=== PATIENT | male | born 1990 | race African-American/Black ===

== ENCOUNTER 2020-10-24 10:31 | Emergency (ER) | payer OTHER ==
[2020-10-24 10:39] VITALS: BMI 31.1
[2020-10-24] MEDS ORDERED: DIPHTH,PERTUSS(ACELL),TET 0.5 ML DISP.SYRIN IM ONE ×2 (11:13→11:18)
[2020-10-24 11:52] VITALS: BP 176/68; PULSE 82; TEMP 98.5
== END 2020-10-24 11:51 | disposition home or self-care (01) ==
LOC: JERFT 10:31
PROC: 3E0234Z Introduction of Serum, Toxoid and Vaccine into Muscle, Percutaneous Approach (ICD-10-PCS; principal; 2020-10-24)
PROC: 0HQKXZZ Repair Right Lower Leg Skin, External Approach (ICD-10-PCS; principal; 2020-10-24)
DX: S81.011A Laceration without foreign body, right knee, initial encounter (principal); Y99.9 Unspecified external cause status
CPT/HCPCS: 90715; 99283-25